=== PATIENT | female | born 1975 | race Caucasian/White ===

== ENCOUNTER 2019-12-08 22:07 | Emergency (ER) | payer OTHER ==
[~2019-12-08] VITALS: Ht 162.6 cm; Wt 72.6 kg
[2019-12-08] MEDS ORDERED: PROTONIX40 M1 (22:29)
[2019-12-08] MEDS ORDERED: METROPOLOL 25 MG. (22:29)
[2019-12-08] MEDS ORDERED: TAGAMET 200 MG (22:30)
[2019-12-09] MEDS ORDERED: ZOFRAN8 M1 PO (02:23)
[2019-12-09] MEDS ORDERED: PEPCID40 MG PO (02:23)
[2019-12-09] MEDS ORDERED: INTESTINEX680 M1 PO (02:23)
== END 2019-12-09 02:33 | disposition home or self-care (01) ==
LOC: ER
DX: K52.89 Other specified noninfective gastroenteritis and colitis (principal)

== ENCOUNTER 2024-07-19 14:09 | Emergency (ER) | payer OTHER ==
[~2024-07-19] VITALS: Ht 162.6 cm; Wt 72.1 kg
[~2024-07-19 14:09] MED LIST: INTESTINEX680 M1 PO; METROPOLOL 25 MG.; PEPCID40 MG PO; PROTONIX40 M1; TAGAMET 200 MG; ZOFRAN8 M1 PO
[2024-07-19] MEDS ORDERED: AMLODIPINE BESYL5 MG PO (14:21)
[2024-07-19] MEDS ORDERED: 0.9 % SODIUM CHLORIDE 1,000 ML IV STA (15:52)
[2024-07-19] MEDS ORDERED: ONDANSETRON HCL 2 MG/ML VIAL ONE (15:58)
[2024-07-19] MEDS ORDERED: ACETAMINOPHEN 500 MG GEL..CAP PO ONE ×2 (15:58→16:00)
[2024-07-19] MEDS ORDERED: FAMOTIDINE/PF 20 MG/2 ML VIAL ONE (15:59)
[2024-07-19] MEDS ORDERED: FAMOTIDINE/PF 20 MG/2 ML VIAL IV ONE (16:00)
[2024-07-19] MEDS ORDERED: ONDANSETRON HCL 2 MG/ML VIAL IV ONE (16:00)
[2024-07-19 16:40] LABS: HEMATOCRIT 43.6 % (36.0-45.00); MEAN CELL VOLUME 86.9 fL (80.00-100.00); MEAN CORPUSCULAR HGB CONC 34.5 g/dl (32.0-36.0); PLATELET COUNT 346 K/uL (150-450); RED BLOOD COUNT 5.01 M/uL (4.00-6.00); RED CELL DISTRIBUTION WIDTH 13.2 % (11.5-14.5)
[2024-07-19 17:10] LABS: CALCIUM 10.7 mg/dL (8.5-10.1); CREATININE SERUM 0.67 mg/dL (0.55-1.02); GFR 93.94; POTASSIUM 4.39 mEq/L (3.5-5.1)
== END 2024-07-19 18:48 | disposition home or self-care (01) ==
LOC: ER 14:10
PROVIDERS: Emergency Medicine
DX: B34.9 Viral infection, unspecified (principal); Z88.6 Allergy status to analgesic agent; Z20.822 Contact with and (suspected) exposure to COVID-19

== ENCOUNTER 2025-10-10 11:31 | Emergency (ER) | payer OTHER ==
[~2025-10-10] VITALS: Ht 162.6 cm; Wt 68.0 kg
[~2025-10-10 11:31] MED LIST changes: +AMLODIPINE BESYL5 MG PO
[2025-10-10 11:49] VITALS: BP 101/70; O2SAT 100
[2025-10-10] MEDS ORDERED: TOPROL XL50 M1 PO (11:51)
[2025-10-10] MEDS ORDERED: GEMFIBROZIL600 MG PO (11:52)
[2025-10-10] MEDS ORDERED: FAMOTIDINE/PF 20 MG/2 ML VIAL IV STA (12:10)
[2025-10-10] MEDS ORDERED: 0.9 % SODIUM CHLORIDE 1,000 ML IV STA (12:10)
[2025-10-10] MEDS ORDERED: ONDANSETRON HCL 2 MG/ML VIAL IV STA (12:10)
[2025-10-10] MEDS ORDERED: ONDANSETRON HCL 2 MG/ML VIAL ONE (13:13)
[2025-10-10] MEDS ORDERED: FAMOTIDINE/PF 20 MG/2 ML VIAL ONE (13:14)
[2025-10-10 13:57] LABS: BASO % 0.4 % (0.1-1.2); EOS # 0.13 (0.04-0.54); EOS % 1.5 % (0.7-7.0); LYMPH # 1.54 (1.18-3.74); LYMPH % 18.0 % (19.3-53.1); MEAN PLATELET VOLUME 10.80 fl (9.4-12.4); MONO # 0.51 (0.24-0.82); MONO % 6.0 % (4.7-12.5); NEUT # 6.31 (1.56-6.13); NEUT % 73.9 % (34.0-71.1); RED CELL DISTRIBUTION WIDTH 12.7 % (11.6-14.4)
[2025-10-10 14:02] LABS: ERYTHROCYTE SEDIMENTATION RATE 13 mm/hr (0-20)
[2025-10-10 14:29] LABS: URINE APPEARANCE Clear; URINE BILIRRUBIN Negative (NEGATIVE); URINE BLOOD Negative; URINE COLOR Yellow; URINE GLUCOSE Negative (NEGATIVE); URINE KETONE Trace (NEGATIVE); URINE LEUKOCYTE Negative; URINE NITRATE Negative; URINE PROTEIN Negative (NEGATIVE); URINE UROBILINOGEN 0.2 E.U./dl
[2025-10-10 14:31] LABS: INR < 0.93
[2025-10-10 14:32] LABS: URINE BACTERIA 568.4 uL (0.0-1933); URINE EPITHELIAL CELLS 9.0 uL (0.0-38.8); URINE RBC 6.1 uL (0.0-20.8)
[2025-10-10 14:48] LABS: ALT/SGPT 16 U/L (12-78); AST/SGOT 12 U/L (15-37); BILIRUBIN TOTAL 0.33 mg/dL (0.3-1.2); BILIRUBIN,CONJUGATED < 0.10 mg/dL (0.0-0.2); BUN CREA RATIO 25 (7.0-25.0); CREATININE SERUM 0.60 mg/dL (0.55-1.02); GFR 106.25; GLUCOSE FASTING 75 mg/dL (65-100); OSMOLALITY SERUM 277 MOSM/KG (275-295)
[2025-10-10 14:49] LABS: URINE CAST 0.00 uL (0.0-1.40); URINE WBC 1.6 uL (0.0-23.2)
[2025-10-10] MEDS ORDERED: LEVSIN/SL0.125 MG SL (15:46)
== END 2025-10-10 16:11 | disposition home or self-care (01) ==
LOC: ER 11:31
PROVIDERS: General Practice
DX: R10.84 Generalized abdominal pain (principal); N83.291 Other ovarian cyst, right side; I10 Essential (primary) hypertension; Z88.6 Allergy status to analgesic agent